=== PATIENT | male | born 1950 ===

== ENCOUNTER → 2021-11-18 13:36 | Outpatient (CLI) | payer MEDICARE, SELFPAY ==
--- NOTE | ~2021-11-18 | MR_ITS ---
EXAMINATION: MR brain IAC wo/w con DATE: 11/18/2021 14:58 INDICATION: Right-sided tinnitus. TECHNIQUE: Magnetic resonance imaging (MRI) of the brain, brainstem, and internal auditory canals was performed without and with 17 mL MultiHance intravenous contrast. Sequences included sagittal and ax ial T1-weighted FSE, axial diffusion-weighted FS EPI, axial T2*-weighted GRE, axial T2-weighted FLAIR Propeller, axial T2-weighted Propeller, small wbogq-xp-ndfb coronal FIESTA, small tzlep-wb-peqo jesus nal T1-weighted FSE, and small mtabd-dp-jvyh axial T1-weighted SPGR. Postcontrast sequences included axial T1-weighted FSE, small iwyfm-ib-aegh coronal T1-weighted FSE, and small uisrc-ch-trud axial T1- weighted SPGR. Apparent diffusion coefficient (ADC) maps were created. COMPARISON: None. FINDINGS: There are scattered areas of nonspecific increased T2-weighted signal intensity in the cere bral white matter, which is within normal limits for the patient's age. There is no intracranial hemo rrhage, acute infarction, or abnormal intracranial mass lesion. The ventricles are normal in size. Th ere is mucosal thickening in the paranasal sinuses. There are likely changes of ocular lens replaceme nt surgeries. The internal auditory canals and inner and middle ears are normal. There is a trace lef t mastoid effusion. IMPRESSION: 1. Normal aging brain. Reviewed, dictated and finalized at location A. SYSTEMS ARCHITECT IMPRESSION: 1. Normal aging brain.
[2021-11-18 14:24] LABS: Estimated Glomerular Filt Rate 60
== END ==
PROVIDERS: Visit Provider Otolaryngology
DX: H93.11 Tinnitus, right ear (principal)
CPT/HCPCS: 70553; A9577

== ENCOUNTER 2022-04-12 12:18 | Emergency (ER) | payer MEDICARE, SELFPAY ==
[2022-04-12 12:28] VITALS: BP 149/80; PULSE 57; RESP 16; TEMP 36.4; O2SAT 100
--- NOTE | 2022-04-12 13:07 | ED.GENADULT ---
HPI - General Adult General Chief complaint: Eye Problems Stated complaint: bug bite on left eye,swelling Time Seen by Provider: 04/12/22 12:52 Source: patient Mode of arrival: ambulatory Limitations: no limitations History of Present Illness HPI narrative: Patient presents today complaining of swelling to his left eye after being bit by a mosquito yesterday. States he was bit yesterday afternoon and had some itching to the area, but woke up this morning with significant swelling to the upper and lower eyelid. He has had significant swelling after mosquito bites in the past. He used some Benadryl ointment to the area yesterday with minimal relief. Related Data Allergies Allergy/AdvReac Type Severity Reaction Status Date / Time Penicillins AdvReac Unknown Other Verified 04/12/22 12:53 Review of Systems Review of Systems: CONSTITUTIONAL: Denies body aches, fever, chills, or sweats. EYES: Denies visual changes, redness, or discharge.+ Swelling to the left upper and lower eyelids. ENT: Denies rhinorrhea, congestion, sore throat, or otalgia. CARDIOVASCULAR: Denies chest pain, palpitations, or edema. RESPIRATORY: Denies cough or dyspnea. GASTROINTESTINAL: Denies abdominal pain, nausea, vomiting, or diarrhea. GENITOURINARY: Denies dysuria or hematuria. SKIN: Denies rash, itching, or wounds. MUSCULOSKELETAL: Denies back pain, joint pain, or myalgia. NEUROLOGIC: Denies headache, numbness, tingling, or weakness. PSYCH: Denies depression or anxiety. [facility] Past Medical History Medical History (Updated 04/12/22 @ 13:17 by Beth Vines, FATBACK TRIMMER, ) Diabetes Family History Family History Father Family history of malignant neoplasm Patient's father is Mother Family history of malignant neoplasm Patient's mother is Social History Social History Smoking status: Heavy tobacco smoker Second hand tobacco smoke exposure: No Alcohol intake: current Comments At time of signature, I have reviewed and agree with nursing past medical, surgical, social and family history unless otherwise noted. Please see nursing chart for further information. There is no relevant family history pertinent to the presenting complaint Exam Narrative: GENERAL: Well-appearing, well-nourished, and in no acute distress. HEAD: Normocephalic, atraumatic. EYES: EOMI. PERRL. Left eye: Moderate edema to upper and lower eyelid. Scant erythema noted. No induration. Nontender. No proptosis. Right eye normal. ENT: Mucous membranes pink and moist. Nares clear. No rhinorrhea. NECK: Normal AROM. CHEST: No respiratory distress. EXTREMITIES: Normal range of motion. No edema. SKIN: Warm, dry, no rash. Capillary refill normal. Normal skin turgor. NEURO: No focal deficits. Alert and oriented x3. Gait steady. PSYCH: Normal affect. No signs of depression or anxiety. Course Course Level of Care: Express Care Visit Vital Signs Vital signs: Vital Signs Temperature 97.6 F 04/12/22 12:28 Pulse Rate 57 L 04/12/22 12:28 Respiratory Rate 16 04/12/22 12:28 Blood Pressure 149/80 H 04/12/22 12:28 Pulse Oximetry 100 04/12/22 12:28 Temperature 97.6 F 04/12/22 12:28 Pulse Rate 57 L 04/12/22 12:28 Respiratory Rate 16 04/12/22 12:28 Blood Pressure 149/80 H 04/12/22 12:28 Pulse Oximetry 100 04/12/22 12:28 Reviewed. Pt has been instructed to follow up with his PCP regarding his elevated blood pressure today. Medical Decision Making Differential Diagnosis Differential Diagnosis: Allergic reaction, cellulitis, insect bite Vital Signs Vital Signs: Vital Signs Temperature 97.6 F 04/12/22 12:28 Pulse Rate 57 L 04/12/22 12:28 Respiratory Rate 16 04/12/22 12:28 Blood Pressure 149/80 H 04/12/22 12:28 Pulse Oximetry 100 04/12/22 12:28 Temperat
== END 2022-04-12 13:20 | disposition home or self-care (01) ==
PROVIDERS: Emergency Provider Nurse Practitioner
DX: S00.262A Insect bite (nonvenomous) of left eyelid and periocular area, initial encounter (principal); T63.481A Toxic effect of venom of other arthropod, accidental (unintentional), initial encounter; E11.9 Type 2 diabetes mellitus without complications
CPT/HCPCS: 99203; G0463

== ENCOUNTER 2025-10-23 08:27 | Outpatient (CLI) | payer MEDICARE, MEDICAID, SELFPAY ==
--- NOTE | 2025-10-23 | ECHO_ITS ---
Patient Info Name: Hernan Harris Age: 75 years : 1950 Gender: Male Ht: 69 in Wt: 190 lbs BSA: 2.07 m2 HR: 57 bpm BP: 163 / 86 mmHg Technical Quality: Good Exam Date: 10/23/2025 9:05 AM Patient Status: O Admit Date: 10/23/2025 Exam Type: CA echo doppler color flow Complete two-dimensional, color flow and Doppler transthoracic echocardiogram is performed. Staff Referring Physician: Andrea Coats End Matcher: Luz Little Attending Provider: Andrea Coats Summary 1. Complete two-dimensional, color flow and Doppler transthoracic echocardiogram is performed. 2. Left ventricular chamber dimension is normal. 3. Left ventricular systolic function is normal, estimated at 60-65. 4. There is mild concentric increased left ventricular wall thickness. 5. The left ventricular diastolic function is grade I diastolic dysfunction. 6. E/e' 11 is mildly elevated. 7. Left atrial chamber dimension is mildly enlarged. 8. There is mild aortic valve sclerosis. 9. The mitral valve has a mildly calcified annulus. 10. No pulmonary hypertension, estimated pulmonary arterial systolic pressure is 16 mmHg. Left Ventricle E/e' 11 is mildly elevated. Left ventricular chamber dimension is normal. Left ventricular systolic function is normal, estimated at 60-65. There is mild concentric increased left ventricular wall thickness. The left ventricular diastolic function is grade I diastolic dysfunction. Right Ventricle Right ventricular chamber dimension is normal. Right ventricular systolic function is normal. Left Atria Left atrial chamber dimension is mildly enlarged. Right Atria Right atrial chamber dimension is normal. Aortic Valve The aortic valve is trileaflet. There is mild aortic valve sclerosis. There is no aortic valve stenosis. There is no aortic valve regurgitation. Pulmonic Valve There is no pulmonic regurgitation. Mitral Valve The mitral valve has a mildly calcified annulus. There is no mitral valve stenosis. There is no mitral valve regurgitation. Tricuspid Valve There is no tricuspid valve regurgitation. No pulmonary hypertension, estimated pulmonary arterial systolic pressure is 16 mmHg. Pericardium/Pleural There is no pericardial effusion. Inferior Vena Cava Normal inferior vena cava with >50% collapse upon inspiration consistent with normal right atrial pressure, 5 mmHg. Aorta The aortic root size at the sinus of Valsalva is normal. Left Ventricular Outflow Tract Name Value Normal LVOT 2D LVOT Diameter 2.0 cm LVOT Doppler LVOT Peak Velocity 102 cm/s LVOT Peak Gradient 4 mmHg LVOT Mean Gradient 2 mmHg LVOT VTI 26 cm LVOT VTI/AV VTI Ratio 0.8 LVOT Stroke Volume 82 ml LVOT CO 4.2 l/min LVOT CI 2.0 l/min/m2 Pulmonic Valve Name Value Normal RVOT Doppler RVOT Peak Velocity 97 cm/s RVOT Peak Gradient 4 mmHg PV Doppler PV Peak Velocity 102 cm/s PV Peak Gradient 4 mmHg Mitral Valve Name Value Normal MV Diastolic Function MV E Peak Velocity 86 cm/s MV A Peak Velocity 112 cm/s MV E/A 0.8 MV Decel Time (PW) 252 ms Tricuspid Valve Name Value Normal TV Regurgitation Doppler TR Peak Velocity 168 cm/s TR Peak Gradient 11 mmHg Estimated PAP/RSVP RA Pressure 5 mmHg <=5 PA Systolic Pressure 16 mmHg <36 RV Systolic Pressure 16 mmHg <36 Aorta Name Value Normal Ascending Aorta Ao Root Diameter (MM) 3.4 cm Ao Root Diam Index (MM) 1.6 cm/m2 Aortic Valve Name Value Normal AV Doppler AV Peak Velocity 159 cm/s AV Peak Gradient 10 mmHg AV Mean Gradient 5 mmHg AV VTI 34 cm AV Area (Cont Eq VTI) 2.4 cm2 >=3.0 AV Area (Cont Eq Edvin) 2.0 cm2 AV DI (Edvin) 0.64 AV Regurgitation 2D LVOT Area 3.2 cm2 Ventricles Name Value Normal LV Dimensions 2D/MM IVS Diastolic Thickness (2D) 1.1 cm 0.6-1.0 IVS Diastole Thickness (MM) 0.8 cm 0.6-1.0 LVID Diastole (2D) 4.0 cm 4.2-5.8 LVID Diastole (MM) 5.7 cm 4.2-5.8 LVIW Diastolic Thickness (2D) 1.2 cm 0.6-1.0 LVIW Diastolic Thickness (MM) 0.8 cm 0.6-1.0 LVID Systole (2D) 2.5 cm 2.5-4.0 LVID Systole (MM) 3.8 cm 2.5-4.0 LVOT Diameter 2.0 cm LV Mass (2D Cubed) 161.09 g 88.00-224.00 LV Mass Index (2D Cubed) 78 g/m2 49-115 Relative Wall Thickness (2D) 0.59 <=0.42 LV Mass (MM Cubed) 173.49 g 88.00-224.00 LV Mass Index (MM Cubed) 84 g/m2 49-115 Relative Wall Thickness (MM) 0.27 LV Fractional Shortening/Ejection Fraction 2D/MM LV Fractional Shortening (2D) 38 % 25-43 LV Fractional Shortening (MM) 34 % 25-43 LV EF (MM Teichholz) 62 % LV EF (2D Teichholz) 68 % LV Diastolic Volume (4C MOD) 100 ml LV EF (4C MOD) 67 % LV Diastolic Volume (2C MOD) 71 ml LV EF (2C MOD) 59 % LV Diastolic Volume (BP MOD) 85 ml 62-150 LV Diastolic Volume Index (BP MOD) 41 ml/m2 34-74 LV Systolic Volume (BP MOD) 32 ml 21-61 LV Systolic Volume Index (BP MOD) 15 ml/m2 11-31 LV EF (BP MOD) 63 % 52-72 LV Diastolic Length (4C) 8.8 cm LV Systolic Length (4C) 7.5 cm LV Stroke Volume (4C MOD) 67 ml Atria Name Value Normal LA Dimensions LA Dimension (MM) 5.2 cm 3.0-4.0 Report Signatures
--- NOTE | 2025-10-23 | EST_ITS ---
Patient Info Name: Hernan Harris Age: 75 years : 1950 Gender: Male Ht: 69 in Wt: 190 lbs BSA: 2.07 m2 HR: 53 bpm BP: 135 / 69 mmHg Exam Date: 10/23/2025 9:01 AM Patient Status: O Admit Date: 10/23/2025 Exam Type: CA stress renetta w NM A regadenoson stress test was performed. Staff Referring Physician: nAdrea Coats Attending Provider: Andrea Coats Nurse: Renetta Asher Exercise Technologist: Hoa Keith Summary 1. No abnormal ST-T wave changes with lexiscan. 2. Please correlate with nuclear medicine images, reported separately. Protocol: Lexiscan Stress ECG Details Stage: REST Duration (min): 0 min : 47 sec HR (bpm): 51 SBP (mmHg): 135 DBP (mmHg): 69 Stage: REST Duration (min): 8 min : 40 sec HR (bpm): 50 SBP (mmHg): 135 DBP (mmHg): 69 Stage: STAGE 1 Duration (min): 1 min : 0 sec HR (bpm): 68 SBP (mmHg): 133 DBP (mmHg): 72 Stage: RECOVERY Duration (min): 1 min : 0 sec HR (bpm): 73 SBP (mmHg): 133 DBP (mmHg): 72 Stage: RECOVERY Duration (min): 2 min : 0 sec HR (bpm): 71 SBP (mmHg): 133 DBP (mmHg): 72 Stage: RECOVERY Duration (min): 3 min : 0 sec HR (bpm): 70 SBP (mmHg): 140 DBP (mmHg): 68 Stage: RECOVERY Duration (min): 3 min : 16 sec HR (bpm): 70 SBP (mmHg): 140 DBP (mmHg): 68 Rest HR: 50 bpm Peak HR: 74 bpm Rest Sys BP: 135 mmHg Peak Sys BP: 140 mmHg Max Pred HR: 146 bpm % Max Pred HR: 51 % Target HR: 124 bpm Max RPP: 10,360 bpm*mmHg Total Time: 1 min : 0 sec Rest He BP: 69 mmHg Peak He BP: 68 mmHg Total Dose: 0.4 mg Resting ECG Sinus rhythm with right bundle-branch block. Stress ECG No abnormal ST/T wave changes with Lexiscan. Arrhythmias None. Report Signatures
--- NOTE | ~2025-10-23 | NM_ITS ---
EXAMINATION: NM renetta stress w perfusion DATE: 10/23/2025 11:37 INDICATION: Atherosclerotic heart disease TECHNIQUE: Rest images were obtained following intravenous administration of 9.3 mCi Tc99m tetrofosmin (Myoview). The patient was infused intravenously with Lexiscan (Regadenoson). Then, 28.5 mCi Tc99m tetrofosmin (Myoview) was administered intravenously, and stress images were obtained. Data was recon structed into short axis and horizontal and vertical long axis SPECT images. Gated SPECT images were also obtained. COMPARISON: None. FINDINGS: There is no definite reversible or fixed perfusion abnormality to suggest ischemia or infarction. There is normal left ventricular chamber size, wall motion and ejection fraction. Left ventricular ejection fraction measures 67%. IMPRESSION: 1. Normal myocardial perfusion at rest and during stress. 2. Left ventricular ejection fraction measuring 67%. Reviewed, dictated and finalized at location A. RGLASS [employer]S FINISHER
== END 2025-10-23 08:28 | disposition home or self-care (01) ==
PROVIDERS: Visit Provider Internal Medicine
DX: I25.10 Atherosclerotic heart disease of native coronary artery without angina pectoris (principal); I51.89 Other ill-defined heart diseases; I35.8 Other nonrheumatic aortic valve disorders; I34.81 Nonrheumatic mitral (valve) annulus calcification
CPT/HCPCS: 78452; 93017; 93306; A9502; J2785